=== PATIENT | female | born 1995 | race American Indian/Alaskan Native ===

== ENCOUNTER 2021-01-09 11:24 | Emergency (ER) | payer MEDICAID ==
--- NOTE | 2021-01-09 12:15 | Event Note ---
ED Screening Note ED Screening Note: TO ER CO [facility] HAD COVID POS 8-28 NO IMMUNIZATIONS FOR COVID WAS TX WITH ZOFRAN AND CODEINE - ANOTHER MED SHE DOES NOT RECALL BUT SHE DID NOT TAKE IT BECAUSE PHARM WAS OUT OF IT PMH ASTHMA OBESE PSH T/A NO HOME MEDS CURRENTLY DENIES C/E/D MOM AND DAD A/W This initial assessment/diagnostic orders/clinical plan/treatment(s) is/are subject to change based on patients health status, clinical progression and re- assessment by fellow clinical providers in the ED. Further treatment and workup at subsequent clinical providers discretion. Patient/guardian urged not to elope from the ED as their condition may be serious if not clinically assessed and managed. Initial orders include: RO COVID PNA/SECONDARY INFECTION
--- NOTE | 2021-01-09 12:24 | XRay Report ---
CHEST PA AND LATERAL VIEWS INDICATION: SOB. COMPARISON: None. FINDINGS: Support devices: None. Heart: Within normal limits. Lungs/Pleura: No acute pulmonary or pleural findings. IMPRESSION: 1. No acute findings. Signer Name: Tiago Rodriguez MD Signed: 01/09/2021 12:20 PM Workstation Name: [id number]
[2021-01-09 13:35] LABS: Alanine Aminotransferase 38 units/L (7-56); Albumin 4.1 g/dL (3.9-5); Blood Urea Nitrogen 7 mg/dL (7-17); Calcium 9.4 mg/dL (8.4-10.2); Hemolysis Index 3
[2021-01-09] MEDS ORDERED: AZITHROMYCIN/NS 500 MG/250 ML 500 MG/250 ML BAG IV ONE (13:37)
[2021-01-09] MEDS ORDERED: SODIUM CHLORIDE 0.9% 1000 ML 1,000 ML IV ONE ×3 (13:37→18:25)
[2021-01-09 13:41] LABS: BUN/Creatinine Ratio 12
[2021-01-09 14:35] LABS: Basophils % (Auto) 0.5 % (0.0-1.8); Eosinophils % (Auto) 0.5 % (0.0-4.3); Hematocrit 37.3 % (30.3-42.9); Hemoglobin 12.8 gm/dl (10.1-14.3); Lymphocytes # (Auto) 2.1 K/mm3 (1.2-5.4); Lymphocytes % (Auto) 42.4 % (13.4-35.0); Mean Corpuscular HGB Conc 34 % (30-34); Mean Corpuscular Volume 80 fl (79-97); Monocytes # (Auto) 0.4 K/mm3 (0.0-0.8); Monocytes % (Auto) 7.9 % (0.0-7.3); Platelet Count 286 K/mm3 (140-440); Red Cell Distribution Width 14.3 % (13.2-15.2)
[2021-01-09] MEDS ORDERED: INSULIN REGULAR, HUMAN 100 UNITS/1 ML IV ONE ×2 (15:33→16:03)
[2021-01-09 15:54] LABS: Bacteria,Urine 1+ /HPF (Negative); Bilirubin,Urine NEG (Negative); Blood,Urine NEG (Negative); Color,Urine Yellow (Yellow); Mucus,Urine FEW /HPF; Urobilinogen,Urine < 2.0 mg/dL (<2.0)
--- NOTE | 2021-01-09 17:17 | Emergency Department Report ---
ED General Adult HPI - General Chief complaint: Fever Stated complaint: ANXIETY/SHORTNESS OF BREATH Time Seen by Provider: 01/09/21 11:54 Source: patient Mode of arrival: Ambulatory Limitations: No Limitations - History of Present Illness Initial comments: 25-year-old -[place] female patient presents with complaints of left- sided chest pain, shortness of breath, and fever x2 days. She states her chest pain has been ongoing since she was diagnosed with Covid on 12/21/2020. Patient is not vaccinated. She denies any coughing or hemoptysis, leg pain/swelling, hormone use, history of DVT/PE, or recent long travel. Patient has a history of asthma and is morbidly obese. She also has a history of anxiety and panic attacks. She states her fever was up to 102, however resolved with Tylenol at home. Patient states her next PCP appointment is 01/22/2021. She rates her chest pain is 8/10 in severity and states it occurs only with ambulation and exertion. No family history of heart disease per patient Severity scale (0 -10): 0 - Related Data Previous Rx's Medication Instructions Recorded Last Taken Type Azithromycin [Zithromax Z-RONY] 0 mg PO DAILY #6 tab 01/09/21 Unknown Rx metFORMIN [Glucophage] 500 mg PO BID 30 Days #60 tablet 01/09/21 Unknown Rx Allergies Allergy/AdvReac Type Severity Reaction Status Date / Time No Known Allergies Allergy Unverified 01/09/21 15:02 ED Review of Systems ROS: Stated complaint: ANXIETY/SHORTNESS OF BREATH Other details as noted in HPI Constitutional: chills, fever, malaise, weakness. denies: diaphoresis Respiratory: shortness of breath. denies: cough Cardiovascular: chest pain ED Past Medical Hx - Past Medical History Previous Medical History?: Yes Hx Psychiatric Treatment: No - Surgical History Past Surgical History?: Yes Additional Surgical History: tonsilectomy - Social History Smoking Status: Never Smoker Substance Use Type: None - Medications Home Medications: Home Medications Medication Instructions Recorded Confirmed Last Taken Type Azithromycin [Zithromax Z-RONY] 0 mg PO DAILY #6 tab 01/09/21 Unknown Rx metFORMIN [Glucophage] 500 mg PO BID 30 Days #60 tablet 01/09/21 Unknown Rx ED Physical Exam - General Limitations: No Limitations ED Course Vital Signs 01/09/21 01/09/2121 11:46 14:45 14:55 Temperature 98.1 F 98.9 F Pulse Rate 104 H 91 H Respiratory 20 14 Rate Blood Pressure 108/79 Blood Pressure 120/72 [Right] O2 Sat by Pulse 98 98 98 Oximetry 01/09/21 01/09/21 01/09/21 16:47 18:22 18:23 Temperature 98.1 F 98.1 F Pulse Rate 71 76 Respiratory 14 14 Rate Blood Pressure Blood Pressure 108/66 111/67 [Right] O2 Sat by Pulse 99 100 100 Oximetry ED Medical Decision Making - Lab Data Result diagrams: 01/09/21 12:45 01/09/21 12:45 - Radiology Data Radiology results: report reviewed CHEST PA AND LATERAL VIEWS INDICATION: SOB. COMPARISON: None. FINDINGS: Support devices: None. Heart: Within normal limits. Lungs/Pleura: No acute pulmonary or pleural findings. IMPRESSION: 1. No acute findings. - Medical Decision Making 25-year-old -[place] female patient presents with complaints of left- sided chest pain, shortness of breath, and fever x2 days. She states her chest pain has been ongoing since she was diagnosed with Covid on 12/21/2020. Patient is not vaccinated. She denies any coughing or hemoptysis, leg pain/swelling, hormone use, history of DVT/PE, or recent long travel. Patient has a history of asthma and is morbidly obese. She also has a history of anxiety and panic attacks. She states her fever was up to 102, however resolved with Tylenol at home. Patient states her next PCP appointment is 01/22/2021. She rates her chest pain is 8/10 in severity and states it occurs only with ambulation and exertion. No family history of heart disease per patient Patient handed over to me by RICARDO Dudley. Glucose noted to be 366. Patient denies history of diabetes. She does admit to polyuria and polydipsia without dysuria or hematuria. Patient given 6 units of IV insulin and 2 L of saline. Her glucose is now 198 upon repeat. Patient was ambulated by this provider with pulse ox and pulse ox noted to remain at 100% on room air. Dimer is negative. Chest x-ray is normal. Patient continues to complain of left-sided chest pain. Troponin is normal and no significant abnormalities on CBC or CMP. Given history of Covid, will cover for pneumonia with azithromycin given chest pain or shortness of breath. Patient started on Metformin. She states she has an appointment with her primary care physician next week. Diabetic diet and importance of exercise discussed in detail with patient. Also discussed signs and symptoms that should prompt immediate return to emergency department in detail, she verbalizes understanding. Her vitals are within normal limits and she is well-appearing and stable for discharge home Critical care attestation.: If time is entered above; I have spent that time in minutes in the direct care of this critically ill patient, excluding procedure time. ED Disposition Clinical Impression: New onset type 1 diabetes mellitus, uncontrolled, Shortness of breath, Chest pain Disposition: HOME / SELF CARE / HOMELESS Is pt being admited?: No Condition: Stable Instructions: Nonspecific Chest Pain, Adult, Type 1 Diabetes Mellitus, Self Care, Adult, Metformin tablets, Diabetes Mellitus and Exercise, Diabetes Mellitus and Nutrition, Adult Prescriptions: metFORMIN [Glucophage] 500 mg PO BID 30 Days #60 tablet Azithromycin [Zithromax Z-RONY] 0 mg PO DAILY #6 tab Referrals: PRIMARY CARE, [Primary Care Provider] - 3-5 Days Forms: Work/School Release Form(ED)
[2021-01-09 18:23] VITALS: BP 111/67
--- NOTE | 2021-01-10 13:32 | Electrocardiograph Report ---
[facility] Test Date: 2021-01-09 Test Time: 13:03:58 Pat Name: LAMONTE SHARP Department: Room: Gender: F Asset Availability Leader: RACHEL : 1995 Requested By: BERNICE BTULER Order Number: [id number] Reading MD: Zachary Mandel Measurements Intervals [place] Rate: 92 P: 78 CT: 134 QRS: 50 QRSD: 85 T: 26 QT: 360 QTc: 446 Interpretive Statements Sinus rhythm No previous ECG available for comparison Electronically Signed On 01-10-2021 13:31:54 EDT by Zachary Mandel
== END 2021-01-09 21:38 | disposition home or self-care (01) ==
LOC: ED 11:24
DX: E10.9 Type 1 diabetes mellitus without complications (principal); R06.02 Shortness of breath; R07.9 Chest pain, unspecified
CPT/HCPCS: 36415; 71046; 80053; 81001; 82010; 82140; 82805; 82962; 84484; 85025; 85379; 87040; 93005; 96361; 96365; 96375; 99284; J7030; J1815